=== PATIENT | female | born 1965 | race Caucasian/White ===

== ENCOUNTER 2016-10-09 16:39 | Emergency (ER) | payer OTHER, MEDICAID ==
[2016-10-09] MEDS ORDERED: KETOROLAC 60 MG/2 ML VIAL IM ONE (19:48)
== END 2016-10-09 21:13 | disposition home or self-care (01) ==
LOC: ER 16:39
DX: K43.9 Ventral hernia without obstruction or gangrene (principal); F17.210 Nicotine dependence, cigarettes, uncomplicated; F12.10 Cannabis abuse, uncomplicated; E66.01 Morbid (severe) obesity due to excess calories; I10 Essential (primary) hypertension
CPT/HCPCS: 36415; 74022; 80053; 81003; 83690; 85025; 96372

== ENCOUNTER 2016-10-21 14:02 | Inpatient (IN) | payer OTHER, MEDICAID ==
[~2016-10-21] VITALS: Ht 181.6 cm; Wt 149.3 kg
[2016-10-21] MEDS ORDERED: SODIUM CHLORIDE 0.9% 1,000 ML ONE (20:28)
[2016-10-21] MEDS ORDERED: MORPHINE 4 MG/ML SYR ONE ×2 (20:51→23:22)
[2016-10-21] MEDS ORDERED: ONDANSETRON 4 MG VIAL ONE ×2 (20:51→23:22)
[2016-10-22] VITALS (19 sets, daily range): BP systolic 132–189; RESP 13–20; TEMP 97–98.1; Ht 181.6 cm; Wt 149.3 kg
[2016-10-22] MEDS ORDERED: SALINE FLUSH 10 ML FLUSH PRN (00:15)
[2016-10-22] MEDS: SODIUM CHLORIDE 0.9% 1,000 ML IV SCH ×2 (01:20→23:40)
[2016-10-22] MEDS ORDERED: *PINK BRACELET XX ONE (01:30)
[2016-10-22] MEDS: DILAUDID 1 MG/ML AMP IV PRN ×2 (03:37→09:05)
[2016-10-22] MEDS: SODIUM CHLORIDE 0.9% FLUSH BAG 500 ML IV SCH (05:56)
[2016-10-22] MEDS ORDERED: CEFAZOLIN 3,000 MG in SODIUM CHLORIDE 0.9% 100 ML IV ONE (06:00)
[2016-10-22] MEDS: ONDANSETRON 4 MG VIAL IV PUSH PRN ×2 (06:25→15:44)
[2016-10-22] MEDS ORDERED: LIDOCAINE 1% 20ML NERVEBLOCK ONE (07:47)
[2016-10-22] MEDS ORDERED: BUPIVACA/EPI 0.25% PF 30ML NERVEBLOCK ONE (07:47)
[2016-10-22] MEDS: FAMOTIDINE 20 MG INJ IV SCH ×2 (08:45→20:44)
[2016-10-22] MEDS ORDERED: GLYCOPYRROLATE 0.2 MG/ML VIAL IV ONE ×2 (09:40→10:24)
[2016-10-22] MEDS ORDERED: LIDOCAINE 1% BUFFERED 1 ML SYR INTRADERM PRN (09:40)
[2016-10-22] MEDS ORDERED: ONDANSETRON 4 MG VIAL IV ONE (09:40)
[2016-10-22] MEDS ORDERED: SCOPOLAMINE PATCH TRANSDERM ONE (09:40)
[2016-10-22] MEDS ORDERED: FAMOTIDINE 20 MG INJ IV ONE (09:40)
[2016-10-22] MEDS ORDERED: MIDAZOLAM 2 MG/2 ML INJ IV ONE (09:40)
[2016-10-22] MEDS ORDERED: LACT RINGERS 1,000 ML IV SCH (09:40)
[2016-10-22] MEDS ORDERED: NEOSTIGMINE 10 MG/10 ML VIAL IV ONE (10:24)
[2016-10-22] MEDS ORDERED: PROPOFOL 20 ML VIAL IV ONE (10:24)
[2016-10-22] MEDS ORDERED: SUCCINYLCHOLINE 20 MG/ML VL IV ONE (10:24)
[2016-10-22] MEDS ORDERED: LIDOCAINE 2% SYR 5 ML IV ONE (10:24)
[2016-10-22] MEDS ORDERED: FENTANYL 100 MCG/2 ML AMP IV ONE (10:24)
[2016-10-22] MEDS ORDERED: ROCURONIUM 50 MG VIAL IV ONE (10:24)
[2016-10-22] MEDS ORDERED: ACETAMINOPHEN 1,000 MG/100 ML IV ONE (10:24)
[2016-10-22] MEDS: *HOME MEDS KEPT IN PHARMACY XX SCH ×2 (11:31→20:00)
[2016-10-22] MEDS: SALINE FLUSH 10 ML FLUSH SCH ×2 (11:38→18:38)
[2016-10-22] MEDS ORDERED: OXYCODONE 5 MG TAB PO PRN (12:20)
[2016-10-22] MEDS ORDERED: DILAUDID 1 MG/ML AMP IV PRN (12:20)
[2016-10-22] MEDS ORDERED: MEPERIDINE 25 MG/ML IV PRN (12:20)
[2016-10-22] MEDS ORDERED: ONDANSETRON 4 MG VIAL IV PRN (12:20)
[2016-10-22] MEDS ORDERED: DILAUDID 0.2 MG/ML PCA IV SCH (14:30)
[2016-10-23 03:31] VITALS: BP_SYST 137; RESP 18; TEMP 98.2
[2016-10-23] MEDS: SODIUM CHLORIDE 0.9% FLUSH BAG 500 ML IV SCH (05:49)
[2016-10-23] MEDS: SODIUM CHLORIDE 0.9% 1,000 ML IV SCH ×2 (05:50→17:36)
[2016-10-23 07:12] VITALS: BP_SYST 148; RESP 15; TEMP 98.1
[2016-10-23] MEDS: *HOME MEDS KEPT IN PHARMACY XX SCH ×2 (08:00→20:00)
[2016-10-23] MEDS: FAMOTIDINE 20 MG INJ IV SCH ×2 (08:11→20:49)
[2016-10-23] MEDS: SALINE FLUSH 10 ML FLUSH SCH ×2 (08:12→20:49)
[2016-10-23 11:24] VITALS: BP_SYST 130; RESP 15; TEMP 98.3
[2016-10-23] MEDS ORDERED: REMOVE TRANSDERMAL PATCH TOPICAL ONE (11:25)
[2016-10-23] MEDS: DILAUDID 1 MG/ML AMP IV PRN ×3 (12:58→22:15)
[2016-10-23 15:36] VITALS: BP_SYST 131; RESP 15; TEMP 98.2
[2016-10-23] MEDS ORDERED: SIMETHICONE 40 MG/0.6 ML PO PRN (19:40)
[2016-10-23] MEDS ORDERED: NICOTINE 14 MG/24 HR TDSY TRANSDERM PRN (19:40)
[2016-10-23 19:41] VITALS: BP_SYST 143; RESP 16; TEMP 98.4
[2016-10-23 23:27] VITALS: BP_SYST 156; RESP 16; TEMP 98.1
[2016-10-24] MEDS: SODIUM CHLORIDE 0.9% 1,000 ML IV SCH (01:24)
[2016-10-24] MEDS: DILAUDID 1 MG/ML AMP IV PRN ×5 (01:24→16:00)
[2016-10-24 04:19] VITALS: BP_SYST 119; RESP 18; TEMP 98.3
[2016-10-24] MEDS: SODIUM CHLORIDE 0.9% FLUSH BAG 500 ML IV SCH (04:58)
[2016-10-24 07:17] VITALS: BP_SYST 119; RESP 16; TEMP 97.7
[2016-10-24] MEDS: *HOME MEDS KEPT IN PHARMACY XX SCH (08:00)
[2016-10-24] MEDS: FAMOTIDINE 20 MG INJ IV SCH (08:17)
[2016-10-24] MEDS: SALINE FLUSH 10 ML FLUSH SCH (08:17)
[2016-10-24] MEDS ORDERED: MAG HYDROX 30 ML UDC PO ONE (14:10)
[2016-10-24 14:35] VITALS: BP_SYST 119; RESP 16; TEMP 97.7
[2016-10-24 15:30] VITALS: BP_SYST 147; RESP 16; TEMP 97.9
[2016-10-25] MEDS ORDERED: REMOVE SCOPALAMINE PATCH XX ONE (09:40)
== END 2016-10-24 16:34 | disposition home or self-care (01) | DRG 354 ==
LOC: ENRESERVTM → ENRESERVDT → ER 14:02 → EMR 10-22 00:14 → 5THE 10-22 00:59
PROVIDERS: ADMIT Surgery; ATTEND Surgery
PROC: 0WUF4JZ Supplement Abdominal Wall with Synthetic Substitute, Percutaneous Endoscopic Approach (ICD-10-PCS; principal; 2016-10-22 11:52)
DX: K43.6 Other and unspecified ventral hernia with obstruction, without gangrene (principal); Z68.42 Body mass index [BMI] 45.0-49.9, adult; I10 Essential (primary) hypertension; E66.01 Morbid (severe) obesity due to excess calories; F17.200 Nicotine dependence, unspecified, uncomplicated
CPT/HCPCS: 36415; 74020; 74176; 80053; 81003; 83690; 85025; 96361; 96374; 96375; 96376